=== PATIENT | male | born 1945 | race Caucasian/White ===

== ENCOUNTER 2018-09-16 12:19 | Inpatient (IN) | payer BC, OTHER ==
[2018-09-16 13:02] VITALS: BMI 18.6
--- NOTE | 2018-09-16 15:21 | HP ---
CIWA Score - Admission Criteria [facility]ASAS Guidelines: Admission for Medically Managed Detox: Requires at least one of the followin. CIWA greater than 12 2. Seizures within the past 24 hours 3. Delirium tremens within the past 24 hours 4. Hallucinations within the past 24 hours 5. Acute intervention needed for co occurring medical disorder 6. Acute intervention needed for co occurring psychiatric disorder 7. Severe withdrawal that cannot be handled at a lower level of care (continued vomiting, continued diarrhea, abnormal vital signs) requiring intravenous medication and/or fluids 8. Patient presents the following: Seizures, delirium tremens or hallucinations in the past 12 hours Admission Criteria Met: Admission criteria met Admission ROS [facility] Allergies/Adverse Reactions: Allergies Allergy/AdvReac Type Severity Reaction Status Date / Time No Known Allergies Allergy Verified 09/16/18 14:30 History of Present Illness: Reference #: [id number] Others' Prescriptions Patient Name: Jason Chopar Date: 1945 Address: [address] [place] [address] Sex: Male Rx Written Rx Dispensed Drug Quantity Days Supply Prescriber Name 07/12/2018 07/12/2018 clonazepam 1 mg tablet 6 2 John Treadwell (LENNY) 06/28/2018 07/11/2018 alprazolam 2 mg tablet 42 21 John Treadwell (LENNY) Patient Name: Jason Chopra Date: 1945 Address: [place] [address] Sex: Male Rx Written Rx Dispensed Drug Quantity Days Supply Prescriber Name 05/14/2018 05/14/2018 alprazolam 2 mg tablet 14 7 Bert-Stas, Ajmal 05/11/2018 05/11/2018 alprazolam 2 mg tablet 10 5 Bert-Stas, Ajmal 05/10/2018 05/10/2018 clonazepam 2 mg tablet 10 5 Bert-Stas, Ajmal Patient Name: Jason Chopra Date: 1945 Address: [address] [place] [address] Sex: Male Rx Written Rx Dispensed Drug Quantity Days Supply Prescriber Name 03/21/2018 03/21/2018 clonazepam 2 mg tablet 60 30 Bert-Stas, Ajmal 03/03/2018 03/07/2018 clonazepam 2 mg tablet 30 15 Bert-Stas, Ajmal 02/28/2018 02/28/2018 buprenorphine-naloxone 8-2 mg sl tablet 14 7 Bert-Stas, [facility] 02/28/2018 02/28/2018 clonazepam 2 mg tablet 14 7 Bert-Stas, [facility] 02/21/2018 02/21/2018 clonazepam 2 mg tablet 14 7 Bert-Stas, [facility] 02/21/2018 02/21/2018 buprenorphine-naloxone 8-2 mg sl tablet 14 7 Bert-Stas, [facility] 02/12/2018 02/14/2018 clonazepam 2 mg tablet 14 7 Bert-Stas, [facility] 02/12/2018 02/12/2018 buprenorphine-naloxone 8-2 mg sl tablet 14 7 Bert-Stas, [facility] 02/07/2018 02/07/2018 clonazepam 2 mg tablet 14 7 Bert-Stas, [facility] 01/10/2018 01/10/2018 clonazepam 2 mg tablet 30 15 Bert-Stas, [facility] 12/20/2017 12/20/2017 alprazolam 2 mg tablet 60 30 Bert-Stas, [facility] 12/20/2017 12/20/2017 oxycodone-acetaminophen 5-325 mg tab 120 30 Bert-Stas, [facility] 11/20/2017 11/20/2017 oxycodone-acetaminophen 5-325 mg tab 120 30 Bert-Stas, [facility] 11/20/2017 11/20/2017 alprazolam 2 mg tablet 30 30 Bert-Stas, [facility] 10/25/2017 10/26/2017 alprazolam 2 mg tablet 30 30 Bert-Stas, [facility] 10/23/2017 10/25/2017 clonazepam 2 mg tablet 30 30 Bert-Stas, [facility] 10/23/2017 10/25/2017 oxycodone-acetaminophen 5-325 mg tab 120 20 Bert-Stas, [facility] 10/23/2017 10/25/2017 alprazolam 2 mg tablet 4 2 Richard Sykes MD 10/04/2017 10/04/2017 oxycodone-acetaminophen 5-325 mg tab 120 20 Bert-Stas, [facility] 10/04/2017 10/04/2017 alprazolam 2 mg tablet 30 30 Bert-Stas, [facility] Patient Name: Jason Chopra Date: 1945 Address: [address] [place] [address] Sex: Male Rx Written Rx Dispensed Drug Quantity Days Supply Prescriber Name 01/22/2018 01/24/2018 clonazepam 1 mg tablet 60 30 Alysha Michel 11/27/2017 11/27/2017 clonazepam 1 mg tablet 30 30 Alysha Michel 10/23/2017 10/23/2017 alprazolam 2 mg tablet 4 2 [facility] patient here requesting detox from benzo use , reports 5-7 x 2 mg /day , reports w/d seizures if no taking benzo , most recently 1 year ago went to [facility], has had rx for Klonopin since , stopped going "a while ago "( see above) latest use 4 d . ago , reports diarrhea, anxiety . heroin use since sober [id number] , relapsed , current use 1 bundle / day via inhalation , latest use 3-4 days ago , went to [facility] [address] Project renewal , currently on 40 mg q d . etoh : denies denies other illicits . tobacco : 5-6 cigs/day . PMHX : bph , hypothyroid does not recall name of meds ,hep C (No tx , per pt told dormant ) , RA on Methotrexate 5 x 2.5 weekly PSHx : denies PSych : denies meds ; denies Shx : lives in custodial , unemployed , on SSD for RA x 15 years. Exam Limitations: No Limitations - Ebola screening Have you traveled outside of the country in the last 21 days: No Have you had contact with anyone from an Ebola affected area: No Have you been sick,other than usual withdrawal symptoms: No - Review of Systems Constitutional: See HPI EENT: reports: Other (glasses - reading , denies dysphagia , upper dentures) Respiratory: reports: No Symptoms reported Cardiac: reports: No Symptoms Reported GI: reports: No Symptoms Reported : reports: No Symptoms Reported Musculoskeletal: reports: No Symptoms Reported Integumentary: reports: No Symptoms Reported Neuro: reports: See HPI, Seizure Endocrine: reports: See HPI Psychiatric: reports: Orientated x3 Patient History - Patient Medical History Hx Asthma: Yes Hx Chronic Obstructive Pulmonary Disease (COPD): Yes Hx Cardiac Disorders: No Hx Hypertension: No Hx Seizures: Yes (DRUG RELATED) Hx Diabetes: No Hx Gastrointestinal Disorders: No Hx Genitourinary Disorders: Yes Hx Sexually Transmitted Disorders: No Hx Renal Disease (ESRD): No Hx Depression: No Hx Suicide Attempt: No Hx Schizophrenia: No - Patient Surgical History Past Surgical History: No Hx Neurologic Surgery: No Hx Cataract Extraction: No Hx Cardiac Surgery: No Hx Lung Surgery: No Hx Breast Surgery: No Hx Breast Biopsy: No Hx Abdominal Surgery: No Hx Appendectomy: No Hx Cholecystectomy: No Hx Genitourinary Surgery: No Hx Section: No Hx Orthopedic Surgery: No Anesthesia Reaction: (UKNOWN) - PPD History Previous Implant?: Yes Documented Results: Positive w/o proof Implanted On Prior R Admission?: No - Reproductive History Patient : No - Smoking Cessation Smoking history: Current every day smoker Have you smoked in the past 12 months: Yes Aproximately how many cigarettes per day: 6 Hx Chewing Tobacco Use: No Initiated information on smoking cessation: No - Substances Abused XANAX Route: Oral Frequency: Daily Amount used: 10MG Age of first use: 68 Date of Last Use: 09/14/18 Family Disease History - Family Disease History Family Disease History: Other: Father (d. 82 ), Mother (+ liver cirrhosis , d. 50's ROHIT ETOH ), Sister (unknown status , does not keep in touch ) Admission Physical Exam BHS - Vital Signs Vital Signs: Vital Signs - 24 hr 09/16/18 13:00 Temperature 97.5 F L Pulse Rate 78 Respiratory 20 Rate Blood Pressure 123/69 - Physical General Appearance: Yes: Disheveled, Mild Distress HEENTM: Yes: EOMI, Hearing grossly Normal, Normocephalic, Normal Voice, Other ( edentulous , upper dentures) Respiratory: Yes: Chest Non-Tender, Lungs Clear, Normal Breath Sounds Neck: Yes: No masses,lesions,Nodules, Trachea in good position Cardiology: Yes: Regular Rhythm, Regular Rate, S1, S2 Abdominal: Yes: Normal Bowel Sounds, Non Tender, Soft Genitourinary: Yes: Within Normal Limits Back: Yes: Normal Inspection Musculoskeletal: Yes: full range of Motion, Gait Steady Extremities: Yes: Normal Capillary Refill, Normal Range of Motion, Other ( severe RA deformities valentin hands) Neurological: Yes: Motor Strength 5/5, Normal Mood/Affect Integumentary: Yes: Normal Color - Diagnostic (1) Sedative hypnotic or anxiolytic dependence Current Visit: Yes Status: Acute (2) Opioid dependence on agonist therapy Current Visit: Yes Status: Acute (3) Nicotine dependence Current Visit: Yes Status: Chronic Qualifiers: Nicotine product type: cigarettes BHS Breath Alcohol Content Breath Alcohol Content: 0 Urine Drug Screen - Results Drug Screen Negative: No Urine Drug Screen Results: BZO-Benzodiazepines, MTD-Methadone Inpatient Rehab Admission - Rehab Decision to Admit Inpatient rehab admission?: No
[2018-09-16] MEDS ORDERED: MAGNESIUM CITRATE 300 ML BOTTLE PO PRN (15:45)
[2018-09-16] MEDS ORDERED: MENTHOL/PHENOL 1 EACH UD MM PRN (15:45)
[2018-09-16] MEDS ORDERED: ACETAMINOPHEN 325 MG TABLET (FP) PO PRN (15:45)
[2018-09-16] MEDS ORDERED: IBUPROFEN 400 MG TABLET (FP) PO PRN (15:45)
[2018-09-16] MEDS ORDERED: MAG HYDROX/AL HYDROX/SIMETH 30 ML UNIT-DOSE CUP PO PRN (15:45)
[2018-09-16] MEDS ORDERED: MAGNESIUM HYDROX 2400MG/30ML ORAL SUSPENSION 30 ML CUP PO PRN (15:45)
[2018-09-16] MEDS ORDERED: chlordiazePOXIDE HCL 25 MG CAPSULE PO PRN (15:45)
[2018-09-16] MEDS ORDERED: ALBUTEROL SO4 0.083% IH SOL 2.5 MG/3 ML VIAL.NEB. NEB PRN (15:48)
[2018-09-16] MEDS: THIAMINE HCL 100 MG TABLET (FP) PO SCH (22:29)
[2018-09-16] MEDS: ATORVASTATIN CA 20 MG TABLET (FP) PO SCH (22:30)
[2018-09-16] MEDS: chlordiazePOXIDE HCL 25 MG CAPSULE PO SCH (22:30)
[2018-09-16] MEDS: QUEtiapine FUMARATE 25 MG TABLET (FP) PO PRN (22:32)
[2018-09-17] MEDS: chlordiazePOXIDE HCL 25 MG CAPSULE PO SCH ×4 (06:39→22:14)
[2018-09-17] MEDS: METHIMAZOLE 10 MG TABLET (FP) PO SCH (10:25)
[2018-09-17] MEDS: PRENATAL VITAMINS W/ FOLIC ACID TABLET (FP) PO SCH (10:25)
[2018-09-17] MEDS: METHADONE HCL 40 MG DISPERSABLE TABLET PO SCH (10:26)
[2018-09-17 11:37] LABS: HEMATOCRIT 39.8 % (35.4-49); HEMOGLOBIN 13.8 GM/dL (11.7-16.9); MCH 34.5 pg (25.7-33.7); MCHC 34.6 g/dl (32.0-35.9); MEAN CELL VOLUME 99.7 fl (80-96); MEAN PLT VOLUME 10.4 fl (7.5-11.1); PLATELET COUNT 165 K/MM3 (134-434); RDW 15.6 % (11.9-15.9); WHITE BLOOD COUNT 5.6 K/mm3 (4.0-10.0)
[2018-09-17 11:48] LABS: ALBUMIN 3.8 g/dl (3.4-5.0); ALK PHOS 87 U/L (45-117); ANION GAP 3 MMOL/L (8-16); BILIRUBIN,TOTAL 0.7 mg/dL (0.2-1); BLOOD UREA NITROGEN 19 mg/dL (7-18); CALCIUM 8.9 mg/dL (8.5-10.1); CHLORIDE 104 mmol/L (98-107); CO2 32 mmol/L (21-32); CREATININE 0.9 mg/dL (0.55-1.3); GLUCOSE,RANDOM 90 mg/dL (74-106); POTASSIUM 4.1 mmol/L (3.5-5.1); SGOT/AST 16 U/L (15-37); SGPT/ALT 14 U/L (13-61); SODIUM 140 mmol/L (136-145)
--- NOTE | 2018-09-17 12:16 | PN ---
BHS Progress Note (SOAP) Subjective: pt here for detox from Benzo use- pt with h/o seizures due to this. Pt was getting benzo from doc and was also buying additional zanax illcitly. States his doctor told him that he would not be given any more meds- pt is here for detox. Pt would like to go to rehab O: Vital Signs - 24 hr 09/16/18 09/16/18 09/17/18 13:00 22:36 00:30 Temperature 97.5 F L 98.2 F Pulse Rate 78 67 Respiratory 20 18 18 Rate Blood Pressure 123/69 107/61 09/17/18 09/17/18 09/17/18 03:30 08:44 09:42 Temperature 97.9 F 97.7 F Pulse Rate 94 H 68 Respiratory 18 20 18 Rate Blood Pressure 116/74 104/58 L Laboratory Tests 09/17/18 09/17/18 09/17/18 06:00 06:00 06:00 WBC 5.6 RBC 4.00 Hgb 13.8 Hct 39.8 MCV 99.7 H MCH 34.5 H MCHC 34.6 RDW 15.6 Plt Count 165 MPV 10.4 Sodium 140 Potassium 4.1 Chloride 104 Carbon Dioxide 32 Anion Gap 3 L BUN 19 H Creatinine 0.9 Creat Clearance w eGFR > 60 Random Glucose 90 Calcium 8.9 Total Bilirubin 0.7 AST 16 ALT 14 Alkaline Phosphatase 87 Total Protein 7.0 Albumin 3.8 RPR Titer Nonreactive a/p: pt on MAT methadone continue detox of benzo- doing well for now
[2018-09-17] MEDS: MELATONIN 5 MG TABLETS PO PRN (22:14)
[2018-09-17] MEDS: THIAMINE HCL 100 MG TABLET (FP) PO SCH (22:14)
[2018-09-17] MEDS: ATORVASTATIN CA 20 MG TABLET (FP) PO SCH (22:14)
[2018-09-18] MEDS: chlordiazePOXIDE HCL 25 MG CAPSULE PO SCH ×3 (05:56→17:25)
[2018-09-18] MEDS: METHIMAZOLE 10 MG TABLET (FP) PO SCH (10:43)
[2018-09-18] MEDS: PRENATAL VITAMINS W/ FOLIC ACID TABLET (FP) PO SCH (10:43)
[2018-09-18] MEDS: METHADONE HCL 40 MG DISPERSABLE TABLET PO SCH ×2 (10:43)
--- NOTE | 2018-09-18 12:41 | PN ---
S CIWA - CIWA Score Nausea/Vomitin-No Nausea/No Vomiting Muscle Tremors: 2 Anxiety: 3 Agitation: 2 Paroxysmal Sweats: No Perspiration Orientation: 0-Oriented Tacttile Disturbances: 0-None Auditory Disturbances: 0-None Visual Disturbances: 0-None Headache: 1-Very Mild CIWA-Ar Total Score: 8 BHS Progress Note (SOAP) Subjective: PATIENT C/O ANXIETY, RESTLESSNESS, MILD SHAKES AND HEADACHE. Objective: 09/18/18 12:36 Vital Signs Temperature 97.9 F 09/18/18 09:33 Pulse Rate 113 H 09/18/18 09:33 Respiratory Rate 09/18/18 09:33 Blood Pressure 118/54 L 09/18/18 09:33 O2 Sat by Pulse Oximetry (%) Laboratory Tests 09/17/18 09/17/18 09/17/18 06:00 06:00 06:00 WBC 5.6 RBC 4.00 Hgb 13.8 Hct 39.8 MCV 99.7 H MCH 34.5 H MCHC 34.6 RDW 15.6 Plt Count 165 MPV 10.4 Sodium 140 Potassium 4.1 Chloride 104 Carbon Dioxide 32 Anion Gap 3 L BUN 19 H Creatinine 0.9 Creat Clearance w eGFR > 60 Random Glucose 90 Calcium 8.9 Total Bilirubin 0.7 AST 16 ALT 14 Alkaline Phosphatase 87 Total Protein 7.0 Albumin 3.8 RPR Titer Nonreactive PE: ALERT AND ORIENTED X 3 SKIN WARM AND DRY EXT MILD TREMORS, AMB AD YOUNG ANXIOUS, MILDLY RESTLESS Assessment: 09/18/18 12:37 WITHDRAWAL SX Plan: CONTINUE DETOX ENCOURAGE ORAL FLUIDS CONTINUE TO MONITOR CLINICALLY
[2018-09-18] MEDS: THIAMINE HCL 100 MG TABLET (FP) PO SCH (22:34)
[2018-09-18] MEDS: chlordiazePOXIDE 5 MG CAPSULE PO SCH (22:34)
[2018-09-18] MEDS: ATORVASTATIN CA 20 MG TABLET (FP) PO SCH (22:34)
[2018-09-19] MEDS: chlordiazePOXIDE 5 MG CAPSULE PO SCH ×3 (06:08→18:04)
[2018-09-19] MEDS ORDERED: METHADONE HCL 40 MG DISPERSABLE TABLET PO SCH (07:02)
[2018-09-19] MEDS: METHADONE HCL 40 MG DISPERSABLE TABLET PO SCH ×2 (07:19→10:20)
[2018-09-19] MEDS: PRENATAL VITAMINS W/ FOLIC ACID TABLET (FP) PO SCH (10:20)
[2018-09-19] MEDS: METHIMAZOLE 10 MG TABLET (FP) PO SCH (10:21)
[2018-09-19] MEDS ORDERED: CYCLOBENZAPRINE HCL 10 MG TABLET (FP) PO PRN (14:14)
--- NOTE | 2018-09-19 14:16 | PN ---
S CIWA - CIWA Score Nausea/Vomitin Muscle Tremors: None Anxiety: 4-Mod. Anxious/Guarded Agitation: 1-Slight > Activity Paroxysmal Sweats: 3 Orientation: 2-Disoriented Date<2 days Tacttile Disturbances: 1-Very Mild Itch/Numbness Auditory Disturbances: 0-None Visual Disturbances: 0-None Headache: 0-None Present CIWA-Ar Total Score: 14 BHS Progress Note (SOAP) Subjective: Sweating, Anxious, Nausea, Body Aches, Interrupted Sleep, Stomach Cramping. Objective: PATIENT A & O X 2 (UNCERTAIN ABOUT CURRENT DAY / DATE). PATIENT OBSERVED AMBULATING ON UNIT. IN NO ACUTE DISTRESS. 09/19/18 14:13 Vital Signs Temperature 98.6 F 09/19/18 13:31 Pulse Rate 56 L 09/19/18 13:31 Respiratory Rate 18 09/19/18 13:31 Blood Pressure 103/66 09/19/18 13:31 O2 Sat by Pulse Oximetry (%) Laboratory Tests 09/17/18 09/17/18 09/17/18 06:00 06:00 06:00 WBC 5.6 RBC 4.00 Hgb 13.8 Hct 39.8 MCV 99.7 H MCH 34.5 H MCHC 34.6 RDW 15.6 Plt Count 165 MPV 10.4 Sodium 140 Potassium 4.1 Chloride 104 Carbon Dioxide 32 Anion Gap 3 L BUN 19 H Creatinine 0.9 Creat Clearance w eGFR > 60 Random Glucose 90 Calcium 8.9 Total Bilirubin 0.7 AST 16 ALT 14 Alkaline Phosphatase 87 Total Protein 7.0 Albumin 3.8 RPR Titer Nonreactive LABS NOTED. Assessment: 09/19/18 14:13 WITHDRAWAL SYMPTOMS. Plan: CONTINUE DETOX. FLEXERIL PO FOR BODY ACHES. INCREASE DAILY PO FLUID INTAKE.
[2018-09-19] MEDS: THIAMINE HCL 100 MG TABLET (FP) PO SCH (22:23)
[2018-09-19] MEDS: QUEtiapine FUMARATE 25 MG TABLET (FP) PO PRN (22:23)
[2018-09-19] MEDS: ATORVASTATIN CA 20 MG TABLET (FP) PO SCH (22:23)
[2018-09-19] MEDS: chlordiazePOXIDE HCL 10 MG CAPSULE PO SCH (22:23)
[2018-09-19] MEDS: MELATONIN 5 MG TABLETS PO PRN (22:25)
[2018-09-20] MEDS: chlordiazePOXIDE HCL 10 MG CAPSULE PO SCH ×2 (06:30→15:19)
--- NOTE | 2018-09-20 13:52 | PN ---
[facility] Progress Note Note: PATIENT SCHEDULED FOR D/C FORM DETOX UNIT TODAY. NO BEDS ARE AVAILABLE AT [facility] AT THIS TIME. PATIENT'S ROBOTIC TECHNICIAN (Frank MARRUFO) INQUIRING ABOUT POSSIBLE ADMISSION AT [facility]). RESULT PENDING. Anthony KHAN NP
[2018-09-20] MEDS: METHADONE HCL 40 MG DISPERSABLE TABLET PO SCH (15:13)
[2018-09-20] MEDS: PRENATAL VITAMINS W/ FOLIC ACID TABLET (FP) PO SCH (15:14)
[2018-09-20] MEDS: METHIMAZOLE 10 MG TABLET (FP) PO SCH (15:14)
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
[2018-09-20] MEDS: ATORVASTATIN CA 20 MG TABLET (FP) PO SCH (22:14)
[2018-09-20] MEDS: QUEtiapine FUMARATE 25 MG TABLET (FP) PO PRN (22:14)
[2018-09-20] MEDS: MELATONIN 5 MG TABLETS PO PRN (22:14)
[2018-09-20] MEDS: THIAMINE HCL 100 MG TABLET (FP) PO SCH (22:14)
[2018-09-21 09:29] VITALS: PULSE 56
--- NOTE | 2018-09-21 09:46 | DS ---
[facility] Detox Discharge Summary Admission Date: 09/16/18 Discharge Date: 09/21/18 - History Present History: Opioid Dependence, Sedative Dependence - Physical Exam Results Vital Signs: Vital Signs Temperature 97.7 F 09/21/18 09:28 Pulse Rate 56 L 09/21/18 09:28 Respiratory Rate 18 09/21/18 09:28 Blood Pressure 120/76 09/21/18 09:28 O2 Sat by Pulse Oximetry (%) - Treatment Hospital Course: Detox Protocol Followed, Detoxed Safely, Responded well, Discharged Condition Good, Rehab Referral Accepted - Medication Discharge Medications: Ambulatory Orders Albuterol Sulfate Inhaler - [Ventolin HFA Inhaler -] 2 puff IH PRN PRN 09/16/18 Methimazole 10 mg PO 09/16/18 - Diagnosis (1) Opioid dependence on agonist therapy Current Visit: Yes Status: Chronic (2) Sedative hypnotic or anxiolytic dependence Current Visit: Yes Status: Chronic (3) Nicotine dependence Current Visit: Yes Status: Chronic Qualifiers: Nicotine product type: cigarettes Substance use status: uncomplicated Qualified Code(s): F17.210 - Nicotine dependence, cigarettes, uncomplicated - AMA Did Patient Leave Against Medical Advice: No (referred to [place] rehab)
[2018-09-21] MEDS: METHADONE HCL 40 MG DISPERSABLE TABLET PO SCH (09:49)
[2018-09-21] MEDS: PRENATAL VITAMINS W/ FOLIC ACID TABLET (FP) PO SCH (09:50)
[2018-09-21] MEDS: METHIMAZOLE 10 MG TABLET (FP) PO SCH (12:32)
[2018-09-21 14:26] VITALS: BP 97/44; TEMP 98.6
[2018-09-21] MEDS ORDERED: METHOTREXATE 2.5 MG TABLET PO SCH (16:00)
== END 2018-09-21 16:38 | disposition home or self-care (01) | DRG 897 ==
LOC: YASAS 12:19 → Y6N 16:31
PROVIDERS: ADMIT Surgery; ATTEND Surgery
PROC: HZ2ZZZZ Detoxification Services for Substance Abuse Treatment (ICD-10-PCS; principal; 2018-09-16)
DX: F13.230 Sedative, hypnotic or anxiolytic dependence with withdrawal, uncomplicated (principal); F11.20 Opioid dependence, uncomplicated; F17.210 Nicotine dependence, cigarettes, uncomplicated; J44.9 Chronic obstructive pulmonary disease, unspecified; Z86.69 Personal history of other diseases of the nervous system and sense organs
CPT/HCPCS: 36415; 71046-TC-FY; 80053; 85027; 86593

== ENCOUNTER 2018-11-18 11:54 | Inpatient (IN) | payer BC, OTHER ==
[2018-11-18 13:31] VITALS: BMI 18.3
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
[2018-11-18] MEDS ORDERED: LORazepam 1 MG TABLET PO PRN (15:10)
[2018-11-18] MEDS ORDERED: MAGNESIUM HYDROX 2400MG/30ML ORAL SUSPENSION 30 ML CUP PO PRN (15:11)
[2018-11-18] MEDS ORDERED: IBUPROFEN 400 MG TABLET (FP) PO PRN (15:11)
[2018-11-18] MEDS ORDERED: NICOTINE POLACRILEX 2 MG GUM BUC PRN (15:11)
[2018-11-18] MEDS ORDERED: MENTHOL/PHENOL 1 EACH UD MM PRN (15:11)
[2018-11-18] MEDS ORDERED: ONDANSETRON *ODT* 4 MG TABLET SL PRN (15:11)
[2018-11-18] MEDS ORDERED: MAGNESIUM CITRATE 300 ML BOTTLE PO PRN (15:11)
[2018-11-18] MEDS ORDERED: guaiFENesin 200 MG/10 ML 10 ML UNIT-DOSE CUPS PO PRN (15:11)
[2018-11-18] MEDS ORDERED: BISMUTH SUBSALICYLATE 524 MG/30 ML UD PO PRN (15:11)
[2018-11-18] MEDS ORDERED: MAG HYDROX/AL HYDROX/SIMETH 30 ML UNIT-DOSE CUP PO PRN (15:11)
[2018-11-18] MEDS ORDERED: hydrOXYzine PAMOATE 25 MG CAPSULE (FP) PO PRN (15:11)
[2018-11-18] MEDS ORDERED: ALBUTEROL SO4 8 GM HFA INHALER IH PRN (15:13)
[2018-11-18] MEDS: LORazepam 2 MG TABLET PO SCH ×2 (17:33→22:25)
[2018-11-18] MEDS: THIAMINE HCL 100 MG TABLET (FP) PO SCH (22:25)
[2018-11-19 00:08] LABS: EPI CELLS 2.1 /HPF (0-5/HPF); PH,URINE 5.5 (5.0-8.0); URINE APPEARANCE CLEAR; URINE BACTERIA 0.8 /hpf (NEGATIVE); URINE BILIRUBIN 1+ (NEGATIVE); URINE CASTS 24 /lpf (0-8); URINE COLOR DK YELLOW; URINE GLUCOSE (UA) NEGATIVE (NEGATIVE); URINE KETONE TRACE (NEGATIVE); URINE LEUK ESTERASE 1+ (NEGATIVE); URINE NITRITE NEGATIVE (NEGATIVE); URINE PROTEIN NEGATIVE (NEGATIVE); URINE WBC 10 /hpf (0-5)
[2018-11-19 00:55] LABS: URINE CRYSTALS MODERATE /hpf
[2018-11-19] MEDS: LORazepam 2 MG TABLET PO SCH ×2 (05:19→10:28)
[2018-11-19] MEDS ORDERED: METHADONE HCL 10 MG TABLET PO SCH (09:00)
[2018-11-19] MEDS ORDERED: METHADONE HCL 10 MG TABLET ONE (09:15)
[2018-11-19] MEDS ORDERED: METHADONE HCL 40 MG DISPERSABLE TABLET ONE (09:15)
[2018-11-19 10:12] LABS: HEMOGLOBIN 12.6 GM/dL (11.7-16.9); MCHC 33.2 g/dl (32.0-35.9); MEAN CELL VOLUME 99.5 fl (80-96); MEAN PLT VOLUME 9.8 fl (7.5-11.1); PLATELET COUNT 143 K/MM3 (134-434); RBC 3.82 M/mm3 (4.00-5.60); RDW 14.6 % (11.9-15.9); WHITE BLOOD COUNT 5.3 K/mm3 (4.0-10.0)
[2018-11-19] MEDS: METHADONE 80 MG, METHADONE 20 MG PO SCH (10:28)
[2018-11-19] MEDS: PRENATAL VITAMINS W/ FOLIC ACID TABLET (FP) PO SCH (10:28)
[2018-11-19] MEDS: NICOTINE 7 MG/24 HOURS TOPICAL PATCH TD SCH (10:28)
[2018-11-19 10:59] LABS: ALBUMIN 2.8 g/dl (3.4-5.0); ALK PHOS 75 U/L (45-117); ANION GAP 4 MMOL/L (8-16); BILIRUBIN,TOTAL 0.2 mg/dL (0.2-1); BLOOD UREA NITROGEN 20 mg/dL (7-18); CALCIUM 8.3 mg/dL (8.5-10.1); CHLORIDE 106 mmol/L (98-107); CO2 30 mmol/L (21-32); CREATININE 0.6 mg/dL (0.55-1.3); GLUCOSE,RANDOM 80 mg/dL (74-106); POTASSIUM 4.6 mmol/L (3.5-5.1); SGOT/AST 19 U/L (15-37); SGPT/ALT 15 U/L (13-61); SODIUM 140 mmol/L (136-145); TOT PROT 5.8 g/dl (6.4-8.2)
--- NOTE | 2018-11-19 14:28 | EKG ---
Test Reason : Blood Pressure : / mmHG Vent. Rate : 053 BPM Atrial Rate : 053 BPM P-R Int : 150 ms QRS Dur : 064 ms QT Int : 456 ms P-R-T Axes : 068 084 062 degrees QTc Int : 427 ms SINUS BRADYCARDIA OTHERWISE NORMAL ECG NO PREVIOUS ECGS AVAILABLE Confirmed by MD CARLITA, EMILY ([id number]) on 11/19/2018 2:28:01 PM Referred By: KENNY KELLY Confirmed By:EMILY ZAZUETA MD
--- NOTE | 2018-11-19 15:19 | PN ---
S CIWA - CIWA Score Nausea/Vomitin-No Nausea/No Vomiting Muscle Tremors: None Anxiety: 4-Mod. Anxious/Guarded Agitation: 0-Normal Activity Paroxysmal Sweats: No Perspiration Orientation: 0-Oriented Tacttile Disturbances: 2-Mild Itch/Numbness/Burn Auditory Disturbances: 2-Mild Harshness/Frighten Visual Disturbances: 3-Moderate Sensitivity Headache: 0-None Present CIWA-Ar Total Score: 11 S COWS - Scale Resting Pulse: 0= [place] 80 or Below Sweatin= No chills or Flushing Restless Observation: 0= Sits Still Pupil Size: 0= Normal to Room Light Bone or Joint Aches: 2= Severe Diffuse Aches Runny Nose/ Eye Tearin= Runny Nose/Eyes GI Upset > 30mins: 0= None Tremor Observation of Outstretched Hands: 0= None Yawning Observation: 1= 1-2x During Session Anxiety or Irritability: 2=Irritable/Anxious Goose Flesh Skin: 3=Piloerection COWS Score: 10 S Progress Note (SOAP) Subjective: Anxious, Body Aches, Fatigue. Objective: PATIENT A & O X 3, OBSERVED AMBULATING ON UNIT UNASSISTED. IN NO ACUTE DISTRESS. 11/19/18 15:21 Vital Signs Temperature 99.0 F 11/19/18 13:07 Pulse Rate 58 L 11/19/18 13:07 Respiratory Rate 18 11/19/18 13:07 Blood Pressure 101/59 L 11/19/18 13:07 O2 Sat by Pulse Oximetry (%) Laboratory Tests 11/18/18 11/19/18 11/19/18 21:25 07:48 07:48 WBC 5.3 RBC 3.82 L Hgb 12.6 Hct 38.0 MCV 99.5 H MCH 33.0 MCHC 33.2 RDW 14.6 Plt Count 143 MPV 9.8 Sodium 140 Potassium 4.6 Chloride 106 Carbon Dioxide 30 Anion Gap 4 L BUN 20 H Creatinine 0.6 Creat Clearance w eGFR 132.44 Random Glucose 80 Calcium 8.3 L Total Bilirubin 0.2 AST 19 ALT 15 Alkaline Phosphatase 75 Total Protein 5.8 L Albumin 2.8 L Urine Color Dk yellow Urine Appearance Clear Urine pH 5.5 Ur Specific [place] 1.029 Urine Protein Negative Urine Glucose (UA) Negative Urine Ketones Trace H Urine Blood Negative Urine Nitrite Negative Urine Bilirubin 1+ H Urine Urobilinogen 1.0 Ur Leukocyte Esterase 1+ H Urine WBC (Auto) 10 Urine RBC (Auto) 37.0 Urine Casts (Auto) 24 U Pathogenic Cast Auto 2 U Epithel Cells (Auto) 2.1 Urine Crystals (Auto) Moderate Urine Bacteria (Auto) 0.8 LABS NOTED. RPR RESULT PENDING. 11/19/18 15:22 Assessment: 11/19/18 15:21 WITHDRAWAL SYMPTOMS. Plan: CONTINUE DETOX. INCREASE DAILY PO FLUID / WATER INTAKE.
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
[2018-11-19] MEDS: LORazepam 1 MG TABLET PO SCH ×2 (17:37→22:23)
[2018-11-19] MEDS: THIAMINE HCL 100 MG TABLET (FP) PO SCH (22:23)
[2018-11-20] MEDS ORDERED: METHADONE HCL 40 MG DISPERSABLE TABLET ONE (04:57)
[2018-11-20] MEDS ORDERED: METHADONE HCL 10 MG TABLET ONE (04:57)
[2018-11-20] MEDS: LORazepam 1 MG TABLET PO SCH ×2 (05:22→10:00)
[2018-11-20] MEDS: METHADONE 80 MG, METHADONE 20 MG PO SCH (05:22)
--- NOTE | 2018-11-20 08:33 | PN ---
S CIWA - CIWA Score Nausea/Vomitin-No Nausea/No Vomiting Muscle Tremors: 2 Anxiety: 2 Agitation: 1-Slight > Activity Paroxysmal Sweats: 1-Minimal Palms Moist Orientation: 0-Oriented Tacttile Disturbances: 0-None Auditory Disturbances: 0-None Visual Disturbances: 0-None Headache: 1-Very Mild CIWA-Ar Total Score: 7 S Progress Note (SOAP) Subjective: feeling better wants to go rehab eating well alert discuss aftercare with staff Objective: 11/20/18 08:32 Vital Signs Temperature 98.2 F 11/20/18 06:23 Pulse Rate 53 L 11/20/18 06:23 Respiratory Rate 18 11/20/18 06:23 Blood Pressure 112/58 L 11/20/18 06:23 O2 Sat by Pulse Oximetry (%) Laboratory Last Values WBC 5.3 K/mm3 (4.0-10.0) 11/19/18 07:48 RBC 3.82 M/mm3 (4.00-5.60) L 11/19/18 07:48 Hgb 12.6 GM/dL (11.7-16.9) 11/19/18 07:48 Hct 38.0 % (35.4-49) 11/19/18 07:48 MCV 99.5 fl (80-96) H 11/19/18 07:48 MCH 33.0 pg (25.7-33.7) 11/19/18 07:48 MCHC 33.2 g/dl (32.0-35.9) 11/19/18 07:48 RDW 14.6 % (11.9-15.9) 11/19/18 07:48 Plt Count 143 K/MM3 (134-434) 11/19/18 07:48 MPV 9.8 fl (7.5-11.1) 11/19/18 07:48 Sodium 140 mmol/L (136-145) 11/19/18 07:48 Potassium 4.6 mmol/L (3.5-5.1) 11/19/18 07:48 Chloride 106 mmol/L (98-107) 11/19/18 07:48 Carbon Dioxide 30 mmol/L (21-32) 11/19/18 07:48 Anion Gap 4 MMOL/L (8-16) L 11/19/18 07:48 BUN 20 mg/dL (7-18) H 11/19/18 07:48 Creatinine 0.6 mg/dL (0.55-1.3) 11/19/18 07:48 Creat Clearance w eGFR 132.44 (>60) 11/19/18 07:48 Random Glucose 80 mg/dL (74-106) 11/19/18 07:48 Calcium 8.3 mg/dL (8.5-10.1) L 11/19/18 07:48 Total Bilirubin 0.2 mg/dL (0.2-1) 11/19/18 07:48 AST 19 U/L (15-37) 11/19/18 07:48 ALT 15 U/L (13-61) 11/19/18 07:48 Alkaline Phosphatase 75 U/L (45-117) 11/19/18 07:48 Total Protein 5.8 g/dl (6.4-8.2) L 11/19/18 07:48 Albumin 2.8 g/dl (3.4-5.0) L 11/19/18 07:48 Urine Color Dk yellow 11/18/18 21:25 Urine Appearance Clear 11/18/18 21:25 Urine pH 5.5 (5.0-8.0) 11/18/18 21:25 Ur Specific [place] 1.029 (1.010-1.035) 11/18/18 21:25 Urine Protein Negative (NEGATIVE) 11/18/18 21:25 Urine Glucose (UA) Negative (NEGATIVE) 11/18/18 21:25 Urine Ketones Trace (NEGATIVE) H 11/18/18 21:25 Urine Blood Negative (NEGATIVE) 11/18/18 21:25 Urine Nitrite Negative (NEGATIVE) 11/18/18 21:25 Urine Bilirubin 1+ (NEGATIVE) H 11/18/18 21:25 Urine Urobilinogen 1.0 mg/dL (0.2-1.0) 11/18/18 21:25 Ur Leukocyte Esterase 1+ (NEGATIVE) H 11/18/18 21:25 Urine WBC (Auto) 10 /hpf (0-5) 11/18/18 21:25 Urine RBC (Auto) 37.0 /hpf (0-4) 11/18/18 21:25 Urine Casts (Auto) 24 /lpf (0-8) 11/18/18 21:25 U Pathogenic Cast Auto 2 /lpf (NEGATIVE) 11/18/18 21:25 U Epithel Cells (Auto) 2.1 /HPF (0-5/HPF) 11/18/18 21:25 Urine Crystals (Auto) Moderate /hpf 11/18/18 21:25 Urine Bacteria (Auto) 0.8 /hpf (NEGATIVE) 11/18/18 21:25 lab noted Assessment: 11/20/18 08:32 mild alcohol and benzo withdrawal Plan: continue detox
[2018-11-20] MEDS: NICOTINE 7 MG/24 HOURS TOPICAL PATCH TD SCH (10:00)
[2018-11-20] MEDS: PRENATAL VITAMINS W/ FOLIC ACID TABLET (FP) PO SCH (10:00)
[2018-11-20] MEDS ORDERED: LORazepam 0.5 MG TABLET PO PRN (17:00)
[2018-11-20] MEDS: LORazepam 0.5 MG TABLET PO SCH ×2 (17:29→22:12)
[2018-11-20] MEDS: MELATONIN 5 MG TABLETS PO PRN (22:12)
[2018-11-20] MEDS: THIAMINE HCL 100 MG TABLET (FP) PO SCH (22:12)
[2018-11-21] MEDS ORDERED: METHADONE HCL 10 MG TABLET ONE (04:32)
[2018-11-21] MEDS ORDERED: METHADONE HCL 40 MG DISPERSABLE TABLET ONE (04:33)
[2018-11-21] MEDS: LORazepam 0.5 MG TABLET PO SCH ×3 (04:53→16:50)
[2018-11-21] MEDS: METHADONE 80 MG, METHADONE 20 MG PO SCH (05:49)
[2018-11-21] MEDS: PRENATAL VITAMINS W/ FOLIC ACID TABLET (FP) PO SCH (10:08)
[2018-11-21] MEDS: NICOTINE 7 MG/24 HOURS TOPICAL PATCH TD SCH (10:09)
--- NOTE | 2018-11-21 14:09 | PN ---
S CIWA - CIWA Score Nausea/Vomitin-No Nausea/No Vomiting Muscle Tremors: 2 Anxiety: 3 Agitation: 0-Normal Activity Paroxysmal Sweats: No Perspiration Orientation: 0-Oriented Tacttile Disturbances: 1-Very Mild Itch/Numbness Auditory Disturbances: 0-None Visual Disturbances: 2-Mild Sensitivity Headache: 0-None Present CIWA-Ar Total Score: 8 BHS COWS - Scale Resting Pulse: 0= [place] 80 or Below Sweatin= Chills/Flushing Restless Observation: 0= Sits Still Pupil Size: 0= Normal to Room Light Bone or Joint Aches: 2= Severe Diffuse Aches Runny Nose/ Eye Tearin= None GI Upset > 30mins: 0= None Tremor Observation of Outstretched Hands: 2= Slight Tremor Visible Yawning Observation: 1= 1-2x During Session Anxiety or Irritability: 2=Irritable/Anxious Goose Flesh Skin: 0=Smooth Skin COWS Score: 8 BHS Progress Note (SOAP) Subjective: Body Aches, Anxious, Tremors. Objective: PATIENT A & O X 3, OBSERVED AMBULATING ON UNIT UNASSISTED. IN NO ACUTE DISTRESS. 11/21/18 14:10 Vital Signs Temperature 96.9 F L 11/21/18 13:32 Pulse Rate 57 L 11/21/18 13:32 Respiratory Rate 18 11/21/18 13:32 Blood Pressure 128/67 11/21/18 13:32 O2 Sat by Pulse Oximetry (%) Laboratory Tests 11/18/18 11/19/18 11/19/18 21:25 07:48 07:48 WBC 5.3 RBC 3.82 L Hgb 12.6 Hct 38.0 MCV 99.5 H MCH 33.0 MCHC 33.2 RDW 14.6 Plt Count 143 MPV 9.8 Sodium 140 Potassium 4.6 Chloride 106 Carbon Dioxide 30 Anion Gap 4 L BUN 20 H Creatinine 0.6 Creat Clearance w eGFR 132.44 Random Glucose 80 Calcium 8.3 L Total Bilirubin 0.2 AST 19 ALT 15 Alkaline Phosphatase 75 Total Protein 5.8 L Albumin 2.8 L Urine Color Dk yellow Urine Appearance Clear Urine pH 5.5 Ur Specific [place] 1.029 Urine Protein Negative Urine Glucose (UA) Negative Urine Ketones Trace H Urine Blood Negative Urine Nitrite Negative Urine Bilirubin 1+ H Urine Urobilinogen 1.0 Ur Leukocyte Esterase 1+ H Urine WBC (Auto) 10 Urine RBC (Auto) 37.0 Urine Casts (Auto) 24 U Pathogenic Cast Auto 2 U Epithel Cells (Auto) 2.1 Urine Crystals (Auto) Moderate Urine Bacteria (Auto) 0.8 RPR Titer 11/19/18 07:48 WBC RBC Hgb Hct MCV MCH MCHC RDW Plt Count MPV Sodium Potassium Chloride Carbon Dioxide Anion Gap BUN Creatinine Creat Clearance w eGFR Random Glucose Calcium Total Bilirubin AST ALT Alkaline Phosphatase Total Protein Albumin Urine Color Urine Appearance Urine pH Ur Specific [place] Urine Protein Urine Glucose (UA) Urine Ketones Urine Blood Urine Nitrite Urine Bilirubin Urine Urobilinogen Ur Leukocyte Esterase Urine WBC (Auto) Urine RBC (Auto) Urine Casts (Auto) U Pathogenic Cast Auto U Epithel Cells (Auto) Urine Crystals (Auto) Urine Bacteria (Auto) RPR Titer Nonreactive LABS NOTED. Assessment: 11/21/18 14:11 WITHDRAWAL SYMPTOMS. Plan: CONTINUE DETOX. INCREASE DAILY PO FLUID INTAKE. PATIENT SCHEDULED FOR D/C TOMORROW.
[2018-11-21] MEDS ORDERED: LATANOPROST 0.005% OPHTH SOLN 2.5ML BOTTLE OS SCH (22:00)
[2018-11-21] MEDS: THIAMINE HCL 100 MG TABLET (FP) PO SCH (22:03)
[2018-11-21] MEDS: MELATONIN 5 MG TABLETS PO PRN (22:03)
[2018-11-22] MEDS ORDERED: hydrOXYzine PAMOATE 25 MG CAPSULE (FP) PO ONE (02:20)
[2018-11-22] MEDS ORDERED: METHADONE HCL 40 MG DISPERSABLE TABLET ONE (04:31)
[2018-11-22] MEDS ORDERED: METHADONE HCL 10 MG TABLET ONE (04:31)
[2018-11-22] MEDS: METHADONE 80 MG, METHADONE 20 MG PO SCH (06:08)
[2018-11-22 09:04] VITALS: BP 132/79; PULSE 82; TEMP 96.7
[2018-11-22] MEDS: PRENATAL VITAMINS W/ FOLIC ACID TABLET (FP) PO SCH (10:16)
[2018-11-22] MEDS: NICOTINE 7 MG/24 HOURS TOPICAL PATCH TD SCH (10:16)
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
== END 2018-11-22 12:12 | disposition home or self-care (01) | DRG 897 ==
LOC: YASAS 11:54 → Y3N 15:24
PROVIDERS: ADMIT Surgery; ATTEND Surgery
PROC: HZ2ZZZZ Detoxification Services for Substance Abuse Treatment (ICD-10-PCS; principal; 2018-11-18)
DX: F10.230 Alcohol dependence with withdrawal, uncomplicated (principal); F11.20 Opioid dependence, uncomplicated; F13.230 Sedative, hypnotic or anxiolytic dependence with withdrawal, uncomplicated; F17.210 Nicotine dependence, cigarettes, uncomplicated; E05.90 Thyrotoxicosis, unspecified without thyrotoxic crisis or storm; N40.0 Benign prostatic hyperplasia without lower urinary tract symptoms; R63.4 Abnormal weight loss; J44.9 Chronic obstructive pulmonary disease, unspecified; B18.2 Chronic viral hepatitis C; H91.90 Unspecified hearing loss, unspecified ear; M06.9 Rheumatoid arthritis, unspecified; Z86.69 Personal history of other diseases of the nervous system and sense organs
CPT/HCPCS: 36415; 80053; 81003; 85027; 86593; 93005; 93010